=== PATIENT | female | born 1985 | race Caucasian/White ===

== ENCOUNTER 2016-04-20 16:25 | Emergency (ER) | payer OTHER ==
[~2016-04-20] VITALS: Ht 157.5 cm; Wt 113.6 kg
[2016-04-20 16:31] VITALS: BP 139/92; PULSE 104; RESP 16; O2SAT 99
[2016-04-20 17:11] LABS: APPEARANCE,URINE HAZY (CLEAR,HAZY); COLOR,URINE YELLOW (YELLOW); PH,URINE 6.5 (5.0-8.0)
[2016-04-20 17:12] LABS: OCCULT BLOOD,URINE NEGATIVE (NEGATIVE); UROBILINOGEN,URINE NORMAL (NORMAL)
[2016-04-20 17:24] LABS: BASOPHILS % (AUTO) 0.2 % (0-3); EOSINOPHILS % (AUTO) 1.2 % (0-5); Mean Corpuscular Volume 83.6 fL (81-100); NEUTROPHILS % (AUTO) 65.1 % (40-74); Platelet Count 357 bil/L (150-400)
[2016-04-20 17:51] LABS: Magnesium 2.1 mg/dL (1.6-2.6)
--- NOTE | 2016-04-20 18:53 | ED.REPORT ---
HPI-Abd Pain F Under 42 Date of Service Apr 20, 2016 ED Provider: Jean Claude Lomeli MD The patient is an otherwise healthy 31 year old female who presents to the emergency department complaining of intermittent RUQ abdominal pain that started 1 week ago. She was seen in January with similar symptoms at which she had a RUQ ultrasound and MRI that were reportedly unremarkable. She describes the pain as dull and it radiates through to her back. She has been taking Prilosec with no relief. She has not seen a automatic buffer. She denies fever , chills, nausea, vomiting, diarrhea, dysuria or hematuria. She has a Mirena IUD in place. Nursing Notes Stated Complaint: PAIN IN STOMACH Chief Complaint: Female Abdominal Pain Nursing Notes Reviewed: Yes Allergies: Coded Allergies: No Known Allergies (Unverified , 04/20/16) No Active Prescriptions or Reported Meds General Time Seen by MD: 18:15 Chief Complaint Abdominal pain Hx Obtained From: Patient Arrived By: Walk-in Sudden in Onset?: Yes Onset Occurred: 1 week ago Symptom Duration: Intermittent Progression since Onset: Intermittent, Gradually worsening Location: : RUQ Quality: Painful Radiation: : Back Severity: Current: Moderate Severity: Maximum: Severe Recent Healthcare: No recent hospitalization, Recent doctor visit, Prior workup Similar Sx Previous: Yes Past Medical History Past Medical History None Family History Cholelithiasis Smoking History Unknown if Ever Smoker Social History Other Social History: Local resident Ambulatory Status Independent Review of Systems Constitutional: Denies: Chills, Fever GI: Reports: Abdominal pain, Denies: Constipation, Diarrhea, Nausea, Vomiting Female: Denies: Dysuria, Hematuria, Musculoskeletal: Reports: Back pain Complete sys rev & neg: except as marked. Physical Exam Initial Vital Signs Vital Signs (First) Date Time Temp Pulse Resp B/P Pulse Ox O2 Delivery O2 Flow Rate FiO2 04/20/16 16:31 36.9 104 16 139/92 99 Room Air Initial VS: Reviewed Head / Eyes: Atraumatic, Normocephalic, PERRL ENT: Mucous membranes moist, Conjunctiva normal, No scleral icterus Neck: Supple, Non-tender, Full range of motion Lymphatic: No lymphadenopathy Extremities: Vascular intact, Neuro intact, No swelling, No tenderness Skin: Warm, Dry, No cyanosis Neurologic: Alert, Oriented, Nonfocal Psychiatric: Mood/affect normal, Behavior normal, Normal thought content General/Constitutional: Awake, Alert, Cooperative Respiratory / Chest: Atraumatic, Breath sounds NL, Breath sounds = bilat, No respiratory distress, No rales, No rhonchi, No wheezing Cardiovascular: Heart rate NL, Regular rhythm, Heart sounds NL, No gallop, No murmurs, No rubs, Peripheral circulation NL Abdomen: Soft, No guarding, No rebound, BS normoactive, No distention, No hernia, No palpable mass, No pulsatile mass Tenderness/Guarding/Rebound: Positive: Tender RUQ..., Negative: Tender epigastric Tolerates firm palpation in all 4 quadrants however in the RUQ with deep inspiration and firm palpation she is tender. Back: Inspection NL, Non-tender, No midline vertebral tend, No CVA tenderness Interpretation & Diagnostics Interpretation & Diagnostics: US ABDOMEN IMPRESSION: 1. No cholelithiasis. Mild contraction of the gallbladder wall. No discrete findings to suggest acute cholecystitis. 2. No specific findings to explain patient's intermittent right upper quadrant pain. Dictated by: Ilene Turner M.D. on 04/20/2016 at 20:40 Lab Results Interpretation Result Diagram: 04/20/16 1714 04/20/16 1714 Test 04/20/16 16:54 04/20/16 17:14 Urine Color Yellow (YELLOW) Urine Appearance Hazy (CLEAR,HAZY) Urine pH 6.5 (5.0-8.0) Urine Specific [place] 1.020 (1.003-1.035) Urine Protein Negativemg/dL (NEG,TRACE) Urine Glucose (UA) Negativemg/dL (NEGATIVE) Urine Ketones Negativemg/dL (NEGATIVE) Urine Occult Blood Negative (NEGATIVE) Urine Nitrite Negative (NEGATIVE) Urine Bilirubin Negative (NEGATIVE) Urine Urobilinogen Normalmg/dL (NORMAL) Urine Leukocyte Esterase Negative (NEGATIVE) Urine RBC 0-2/hpf (0-2) Urine WBC 0-5/hpf (0-5) Urine Epithelial Cells Moderate/hpf (NONE-MOD) Urine Crystals None seen (NONE SEEN) Urine Bacteria Few/hpf (NONE-FEW) Urine Hyaline Casts None/lpf (NONE) Urine Granular Casts None seen (NONE SEEN) Urine Waxy Casts None seen (NONE SEEN) Urine Red Blood Cell Casts None seen (NONE SEEN) Urine White Blood Cell Casts None seen (NONE SEEN) Urine Mucus Present (None Seen) Urine Trichomonas None seen (NONE SEEN) Urine Yeast None (NONE SEEN) Urinalysis Comment None Urine Culture Reflexed Not indicated White Blood Count 14.1th/mm3 (3.8-10.1) Red Blood Count 4.87mil/mm3 (3.90-5.20) Hemoglobin 14.6g/dL (12.0-15.6) Hematocrit 40.7% (35.0-46.0) Mean Corpuscular Volume 83.6fL (81-100) Mean Corpuscular Hemoglobin 30.0pg (27.0-35.0) Mean Corpuscular Hemoglobin Concent 35.9% (32.0-37.0) Red Cell Distribution Width 13.2% (12.3-15.4) Platelet Count 357bil/L (150-400) Neutrophils (%) (Auto) 65.1% (40-74) Lymphocytes (%) (Auto) 27.1% (14-46) Monocytes (%) (Auto) 6.0% (4-12) Eosinophils (%) (Auto) 1.2% (0-5) Basophils (%) (Auto) 0.2% (0-3) Sodium Level 136mEq/L (134-144) Potassium Level 3.9mEq/L (3.5-5.2) Chloride Level 101mEq/L (97-108) Carbon Dioxide Level 21mmol/L (18-29) Blood Urea Nitrogen 10mg/dL (6-20) Creatinine 0.60mg/dL (0.57-1.00) Estimat Glomerular Filtration Rate 169mL/min (>59) Glucose Level 97mg/dL (60-99) Calcium Level 9.1mg/dL (8.5-10.1) Magnesium Level 2.1mg/dL (1.6-2.6) Total Bilirubin 0.2mg/dL (0.0-1.2) Aspartate Amino Transf (AST/SGOT) 26U/L (0-50) Alanine Aminotransferase (ALT/SGPT) 35U/L (0-32) Alkaline Phosphatase 63U/L (25-150) Total Protein 7.3g/dL (6.4-8.4) Albumin 4.1g/dL (3.4-5.0) Lipase 18U/L (13-60) Hold Crowell Top Tube Received (Received) Re-Eval/Medical Decision Med Decision/Clinical Course Patient is a overweight 31-year-old female who presents with intermittent right upper quadrant abdominal pain that is worse with eating. She reports prior workup at outside hospital and ultrasound that was normal however I am unable to obtain these records at this time. Examination reveals mild tenderness of the right upper quadrant and otherwise unremarkable abdominal examination and nontoxic appearing female. Treated with [place] and Zofran US ABDOMEN IMPRESSION: 1. No cholelithiasis. Mild contraction of the gallbladder wall. No discrete findings to suggest acute cholecystitis. 2. No specific findings to explain patient's intermittent right upper quadrant pain. CBC notable for leukocytosis of 14.1, CMP unremarkable. Patient reported some improvement with the above medications. No evidence at this time of cholelithiasis or cholecystitis. In absence of acute biliary disease I suspect that her symptoms are related to gastritis or peptic ulcer disease. She will continue to take proton pump inhibitor. She has been referred to gastroenterology for further evaluation and workup. Follow-up and return precautions were reviewed in detail and the patient was discharged in good condition. Source of Hx: Old records Re-Evaluation/Progress #1: Time of Eval: 19:09 Re-Evaluation/Progress Note: She would like to have an ultrasound and oral pain medication. Re-Evaluation/Progress #2: Time of Eval: 20:51 Re-Evaluation/Progress Note: Rechecked the patient. Discussed findings, diagnosis, and plan for discharge. All questions were addressed. Counseled Regarding: Diagnosis, Need for follow-up, When/why to return to ED Discharge & Departure Primary Impression: RUQ abdominal pain Additional Impressions: Postprandial RUQ pain Leukocytosis Leukocytosis type: unspecified Qualified Code: D72.829 - Elevated white blood cell count, unspecified Gastritis and duodenitis Disposition: Home Discharge Condition All VS Reviewed: Yes Condition: Stable Patient Instructions: Biliary Colic (ED) Additional Instructions: Thank you for seeking care at the emergency room. Our primary goal today in the ED was to evaluate you for any life-threatening conditions. Your evaluation was reassuring. Continue the Prilosec daily. Avoid Ibuprofen or any other NSAIDS. You should follow-up with a automatic buffer. We have given you a referral to Dr. Coulter. Call on Saturday to schedule an appointment. You should return to the ED immediately if you develop increased pain, fevers, vomiting, or any other concerning signs or symptoms. Thank you for letting us partake in your care today. Referrals: Max River MD (PCP) Lisa Coulter MD Attestation Portions of this note were transcribed by Phoebe Pinto. I, Dr. Lomeli personally performed the history, physical exam and medical decision-making; I reviewed and confirmed the accuracy of the information in the transcribed note. Signed by: Rina Todd, 04/20/2016 and 2119. copies to: Lisa Coulter MD; Max River MD, Beck O MD Apr 20, 2016 18:53 Phoebe Pinto Apr 20, 2016 19:12
[2016-04-20] MEDS ORDERED: HYDROcodone-APAP 5-325 mg Tablet PO ONE (19:10)
--- NOTE | 2016-04-20 20:44 | DRSVH ---
PROCEDURE: US ABDOMEN ([id number]) INDICATIONS: ruq pain TECHNIQUE: Real-time scanning was performed of the abdominal and retroperitoneal organs, with image documentatio n. COMPARISON: None. FINDINGS: Liver: The liver measures 15.5 cm in length and demonstrates slightly increased echotexture. Gallbladder: The gallbladder wall measures 1.8-3.4 mm in diameter and is mildly contracted. The patie nt has been n.p.o. for 7 hours. No stones, sludge, pericholecystic fluid, or sonographic Chowdhury's sig n. Biliary ducts: Intrahepatic bile ducts are non-dilated. Extrahepatic bile duct caliber measures 4.4 mm. Normal is 6-7 mm or less in diameter, or 10 mm or less post-cholecystectomy. Pancreas: Visualized portions of the pancreas are sonographically normal. The pancreatic tail is non visualized. Spleen: Spleen is normal in size and homogeneous in echotexture. Kidneys: Kidneys are normal in size and echotexture. Right kidney measures 11.1 cm long; left kidne y measures 11.1 cm long. No hydronephrosis or nephrolithiasis. No solid masses. Aorta: Visualized aorta is normal in caliber at less than 3 cm. Iliacs: Proximal common iliac arteries are normal in caliber at less than 2.5 cm. IVC: Intrahepatic inferior vena cava is patent. Miscellaneous: No free abdominal fluid. IMPRESSION: 1. No cholelithiasis. Mild contraction of the gallbladder wall. No discrete findings to suggest acute cholecystitis. 2. No specific findings to explain patient's intermittent right upper quadrant pain. Dictated by: Ilene Turner M.D. on 04/20/2016 at 20:40 Approved by: Ilene Turner M.D. on 04/20/2016 at 20:42
[2016-04-20 21:29] VITALS: BP 119/69; PULSE 62; RESP 18; O2SAT 96
== END 2016-04-20 21:30 | disposition home or self-care (01) ==
LOC: SED 16:25
DX: R10.11 Right upper quadrant pain (principal); D72.829 Elevated white blood cell count, unspecified; K29.90 Gastroduodenitis, unspecified, without bleeding